=== PATIENT | female | born 1970 | race Caucasian/White ===

== ENCOUNTER → 2022-12-19 | Outpatient (CLI) | payer BC ==
--- NOTE | 2023-01-13 07:50 | MM ---
Reason for Exam: Screening (asymptomatic). Last mammogram was performed 1 year(s) and 5 month(s) ago. Patient History: Menarche at age 13. First Full-Term at age 24. Currently using Estrogen, starting at age 52. Last menstrual period: 12/17/2022 Risk Values: Brianda 5 year model risk: 0.9%. NCI Lifetime model risk: 8.8%. Prior Study Comparison: 05/12/2013 Bilateral Screening Mammogram, [facility] [place]. 08/01/2014 Bilateral Screening Mammogram, [facility]. 04/10/2018 Bilateral Screening Mammogram, [facility]. 07/17/2021 Bilateral MG screening mammo w CAD - 2, Unknown. Tissue Density: The breast tissue is almost entirely fat. Findings: Analyzed By CAD. Asymmetry left breast CC view 7.6 cm from the nipple, lateral, middle depth. This area has slowly become increased in density comparing to 2017 2021. Right: There is no suspicious group of microcalcifications or new suspicious mass in either breast. Overall Assessment: Incomplete: need additional imaging evaluation, BI-RAD 0 Management: Screening Mammogram of the left breast. 3-D imaging of the left breast with spot compression. [facility] will attempt to contact patient to return for supplemental views and ultrasound if indicated. Patient should continue monthly self-breast exams. A clinical breast exam by your physician is recommended on an annual basis. This exam should not preclude additional follow-up of suspicious palpable abnormalities. Note on Brianda scores and lifetime risk: 1. A Brianda score greater than 3% is considered moderate risk. If this is the case, consider specialist referral to assess eligibility for a risk reducing agent. 2. If overall lifetime risk for the development of breast cancer is 20% or higher, the patient may qualify for future screening with alternating mammogram and breast MRI. Electronically signed and approved by: Joce Rivera DO
== END | disposition home or self-care (01) ==
LOC: RADMAMWWP 08:29
PROVIDERS: ATTEND Family Medicine
DX: Z12.31 Encounter for screening mammogram for malignant neoplasm of breast (principal)
CPT/HCPCS: 77067

== ENCOUNTER → 2023-01-17 | Outpatient (CLI) | payer BC ==
--- NOTE | 2023-01-20 07:15 | MM ---
Reason for Exam: Additional evaluation requested from abnormal screening. Last screening mammogram was performed less than 1 month ago. Patient History: Menarche at age 13. First Full-Term at age 24. Currently using Estrogen, starting at age 52. Risk Values: Brianda 5 year model risk: 0.9%. NCI Lifetime model risk: 8.8%. Prior Study Comparison: 05/12/2013 Bilateral Screening Mammogram, [facility] [place]. 08/01/2014 Bilateral Screening Mammogram, [facility] [place]. 04/10/2018 Bilateral Screening Mammogram, [facility] [place]. 07/17/2021 Bilateral MG screening mammo w CAD - 2, Unknown. 12/19/2022 Bilateral MG screening mammo w CAD, [facility]. Tissue Density: Right: The breast tissue is almost entirely fat. Findings: Analyzed By CAD. No evidence for persistent mass or distortion. Findings are felt to reflect superimposed vasculature. Overall Assessment: Benign, BI-RAD 2 Management: Screening Mammogram of both breasts in 1 year. Results were given to the patient verbally at the time of exam. Patient should continue monthly self-breast exams. A clinical breast exam by your physician is recommended on an annual basis. This exam should not preclude additional follow-up of suspicious palpable abnormalities. Note on Brianda scores and lifetime risk: 1. A Brianda score greater than 3% is considered moderate risk. If this is the case, consider specialist referral to assess eligibility for a risk reducing agent. 2. If overall lifetime risk for the development of breast cancer is 20% or higher, the patient may qualify for future screening with alternating mammogram and breast MRI. Electronically signed and approved by: Brenton Solis M.D. Radiologis
== END | disposition home or self-care (01) ==
LOC: RADMAMWWP 13:36
PROVIDERS: ATTEND Family Medicine
DX: R92.8 Other abnormal and inconclusive findings on diagnostic imaging of breast (principal)
CPT/HCPCS: 77061; 77065

== ENCOUNTER 2023-07-01 10:28 | Day surgery (SDC) | payer BC ==
[2023-06-26 13:03] VITALS: BMI 31.0
[~2023-07-01 10:28] MED LIST: LACTATED RINGERS 1,000 ML IV SCH; LIDOCAINE 1% (10MG/ML) FOR IV START INTRADERMA PRN; ONDANSETRON 4 MG/2 ML VIAL IVP PRN
[2023-07-01] MEDS ORDERED: LACTATED RINGERS 1,000 ML IV ONE (12:00)
[2023-07-01 12:31] VITALS: TEMP 97
[2023-07-01] MEDS ORDERED: PROPOFOL 10 MG/ML 20 ML VIAL IV ONE (13:07)
[2023-07-01] MEDS ORDERED: LIDOCAINE 1% INJ 10MG/ML (20 ML MDV) ONE (13:07)
--- NOTE | 2023-07-01 13:23 | P.PCN ---
Date of Procedure: 07/01/23 Procedure(s) Performed: BRIEF HISTORY: Patient is a 53-year-old pleasant white female scheduled for an elective colonoscopy as a part of screening for colon cancer. PROCEDURE PERFORMED: Colonoscopy. PREOPERATIVE DIAGNOSIS: Screening for colon cancer. IV sedation per Anesthesia. PROCEDURE: After informed consent was obtained, the patient, was brought into the endoscopy unit. IV sedation was administered by Anesthesia under continuous monitoring. Digital rectal examination was normal. Initially the Olympus CF-160 flexible video colonoscope was then inserted in the rectum, gradually advanced into the cecum without any difficulty. Careful examination was performed as the scope was gradually being withdrawn. Ileocecal valve and the appendiceal orifice were visualized and appeared normal. Prep was excellent. Mucosa of the cecum, ascending colon, transverse colon, descending colon, sigmoid colon, and rectum appeared normal. Retroflexion was performed in the rectum and no lesions were seen. The patient tolerated the procedure well. IMPRESSION: Normal-appearing colon from rectum to cecum with no evidence of colorectal neoplasia. RECOMMENDATIONS: Findings of this examination were discussed with the patient as a family.. She was advised to have a repeat screening colonoscopy in 10 yea rs.
[2023-07-01 14:11] VITALS: BP 101/58; PULSE 73; RESP 18
== END 2023-07-01 13:57 | disposition home or self-care (01) ==
LOC: ORWHC2ENDO 10:28
PROVIDERS: ATTEND Internal Medicine Gastroenterology
DX: Z12.11 Encounter for screening for malignant neoplasm of colon (principal); E03.9 Hypothyroidism, unspecified; Z79.899 Other long term (current) drug therapy; Z79.890 Hormone replacement therapy
CPT/HCPCS: 81025; 45378; J2001; J2704

== ENCOUNTER → 2024-03-19 | Outpatient (CLI) | payer BC ==
--- NOTE | 2024-03-22 08:46 | MM ---
Reason for Exam: Screening (asymptomatic). Last mammogram was performed 1 year(s) and 3 month(s) ago. Patient History: Menarche at age 13. First Full-Term at age 24. Perimenopausal. Currently using Estrogen, starting at age 52. Last menstrual period: 02/24/2024 Risk Values: Brianda 5 year model risk: 1.0%. NCI Lifetime model risk: 8.7%. Prior Study Comparison: 07/17/2021 Bilateral MG screening mammo w CAD - 2, Unknown. 12/19/2022 Bilateral MG screening mammo w CAD, [facility]. 01/17/2023 Left MG 3D work up w/cad LT, [facility]. Tissue Density: There are scattered areas of fibroglandular density. Findings: Analyzed By CAD. Right breast: There is no suspicious group of microcalcifications or new suspicious mass. Left breast: There is no suspicious group of microcalcifications or new suspicious mass. Overall Assessment: Negative, BI-RAD 1 Management: Screening Mammogram of both breasts in [address] [facility] will attempt to contact patient to return for supplemental views and ultrasound if indicated. Patient should continue monthly self-breast exams. A clinical breast exam by your physician is recommended on an annual basis. This exam should not preclude additional follow-up of suspicious palpable abnormalities. Note on Brianda scores and lifetime risk: 1. A Brianda score greater than 3% is considered moderate risk. If this is the case, consider specialist referral to assess eligibility for a risk reducing agent. 2. If overall lifetime risk for the development of breast cancer is 20% or higher, the patient may qualify for future screening with alternating mammogram and breast MRI. [facility], , 03/22/2024 8:44 AM. Electronically signed and approved by: Joce Rivera DO
== END | disposition home or self-care (01) ==
LOC: RADMAMWWP 16:26
PROVIDERS: ATTEND Obstetrics & Gynecology
CPT/HCPCS: 77063; 77067

== ENCOUNTER → 2024-07-30 | Outpatient (CLI) | payer BC ==
[2024-07-30 10:59] LABS: HCT 38.2 % (37.2-50.0); HGB 12.6 g/dL (12.0-17.0); MCH 31.3 pg (27.0-32.0); Mean Platelet Volume 8.8 FL (9.5-12.2); NRBC Per 100 WBC 0 X 10*3/uL (0.00-0.01); Platelet Count 256 X 10*3/uL (140-440); RBC 4.02 X 10*6/uL (4.10-5.60); RDW 12.2 % (11.5-14.5); WBC 6.23 X 10*3/uL (4.50-10.00)
[2024-07-30 11:23] LABS: ALT 18 U/L (8-49); AST 21 U/L (13-35); Albumin 4.3 g/dL (3.8-4.9); Albumin/Globulin Ratio 1.72 Ratio (1.60-3.17); Alkaline Phosphatase 80 U/L (41-126); BUN/Creat Ratio 27.17 Ratio (12.00-20.00); Blood Urea Nitrogen 16.3 mg/dL (9.0-27.0); Calcium 9.1 mg/dL (8.7-10.3); Carbon Dioxide 26.6 mmol/L (21.6-31.8); Chloride 104 mmol/L (96-109); Globulin 2.5 g/dL (1.6-3.3); Glucose 95 mg/dL (70-110); Potassium 4.1 mmol/L (3.5-5.5); Sodium 140 mmol/L (135-145); T4, Free (Free Thyroxine) 1.22 ng/dL (0.80-1.80); Total Bilirubin <0.2 mg/dL (0.3-1.2); Total Protein 6.8 g/dL (6.2-8.2); VLDL Calculation 9.62 mg/dL (5.00-40.00)
== END | disposition home or self-care (01) ==
LOC: LABWHC1 07:21
PROVIDERS: ATTEND Internal Medicine Infectious Disease
DX: E55.9 Vitamin D deficiency, unspecified (principal); R63.5 Abnormal weight gain; R53.83 Other fatigue
CPT/HCPCS: 36415; 80053; 80061; 82306; 82607; 83036; 83525; 84439; 84443; 85027